=== PATIENT | male | born 1980 | race Caucasian/White ===

== ENCOUNTER 2019-01-12 18:00 | Emergency (ER) | payer MEDICAID ==
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
== END 2019-01-12 20:55 | disposition home or self-care (01) ==
LOC: ERS 18:00
DX: M25.531 Pain in right wrist (principal); E03.9 Hypothyroidism, unspecified; E10.9 Type 1 diabetes mellitus without complications; F41.9 Anxiety disorder, unspecified; V43.62XA Car passenger injured in collision with other type car in traffic accident, initial encounter
CPT/HCPCS: 36416